=== PATIENT | female | born 1950 | race Caucasian/White ===

== ENCOUNTER 2017-09-13 13:10 | Emergency (ER) | payer SELFPAY ==
[~2017-09-13] VITALS: Ht 154.9 cm; Wt 90.7 kg
[2017-09-13 14:20] VITALS: BP 134/87
--- NOTE | 2017-09-14 11:47 | Emergency Room Report ---
History of Present Illness General Chief Complaint: Skin Rash/Abscess Source: Family Member - daughter, Medical Record Present Illness HPI 67 yo female patient BIB sister presents to ED with complaints of lower left leg cellulitis. Patient was previously seen for cellulitis 2 days ago and is currently being treated with Keflex, patient has completed 2 days of medication use. Patient currently staying in long term and was sent by facility to check leg for worsening of cellulitis. Sister reports history of bilateral leg edema. Patient denies leg pain. Patient denies fever, rash, nausea, vomiting, chest pain, SOB, calf pain. Allergies: Coded Allergies: No Known Allergies (Unverified , 09/13/17) Patient History Past Medical History: see triage record Immunizations: UTD Reviewed Nursing Documentation: PMH: Agreed, PSxH: Agreed Nursing Documentation-PMH Past Medical History: No History, Except For Hx Cardiac Problems: No Hx Hypertension: Yes Hx Pacemaker: No Hx Asthma: No Hx COPD: Yes Hx Diabetes: No Hx Cancer: No Hx Gastrointestinal Problems: No Hx Dialysis: No History Of Psychiatric Problem: Yes Hx Neurological Problems: No Hx Cerebrovascular Accident: No Hx Seizures: No Review of Systems All Other Systems: negative except mentioned in HPI Physical Exam Vital Signs Date Time Temp Pulse Resp B/P (MAP) Pulse Ox O2 Delivery O2 Flow Rate FiO2 09/13/17 13:17 99.0 95 16 102/78 96 Room Air Sp02 EP Interpretation: reviewed, normal General Appearance: no apparent distress, alert, GCS 15, non-toxic Head: normocephalic, atraumatic Eyes: bilateral eye normal inspection, bilateral eye PERRL, bilateral eye EOMI Respiratory: chest non-tender, lungs clear, normal breath sounds, speaking full sentences Cardiovascular #1: regular rate, rhythm Musculoskeletal: back normal, gait/station normal, normal range of motion, non- tender, no calf tenderness, Imani's Sign negative Neurologic: alert, oriented x3, responsive, motor strength/tone normal, sensory intact, speech normal Psychiatric: mood/affect normal Skin: other - anterior distal tibia left lecm area of erythema with mild edema, around edges crusting, minimal dried blood and pus from center of wound, no active bleeding, no ecchymosis Lymphatic: no adenopathy Medical Decision Making PA Attestation Dr. Dia is my supervising physician with whom patient management has been discussed with. Diagnostic Impression: Primary Impression: Cellulitis and abscess of left lower extremity ER Course Pt. presents to the ED c/o cellulitis.. Ddx considered but are not limited to rash, cellulitis, abscess, atopic dermatitis, angioedema., allergic reaction, DVT. Vital signs: are WNL, pt. is afebrile H&PE are most consistent with cellulitis. ORDERS: None required at this time, the diagnosis is clinical ED INTERVENTIONS: None required at this time. DISCHARGE: At this time pt. is stable for d/c to home. Will provide printed patient care instructions, and any necessary prescriptions. Patient instructed to complete current course of antibiotics. Care plan and follow up instructions have been discussed with the patient prior to discharge. Patient instructed to follow-up with primary care provider in 3 - 5 days and discuss further referral to verification rep and vascular physician. Patient questions asked and answered. ER precautions given. Patient instructed to return to ER immediately for any new or worsening of symptoms including but not limited to increasing SOB, persistent fever, intractable vomiting, calf pain. Last Vital Signs Date Time Temp Pulse Resp B/P (MAP) Pulse Ox O2 Delivery O2 Flow Rate FiO2 09/13/17 14:20 82 18 134/87 97 Room Air 09/13/17 14:20 98.0 Disposition: HOME, SELF-CARE Condition: Stable Referrals: NOT CHOSEN IPA/MD,REFERRING (PCP) Patient Instructions: Cellulitis, [id number] Additional Instructions: Followup with primary care provider in 3 -5 days. Take medications as directed. Patient questions asked and answered. ER precautions given, patient instructed to return to ER immediately for any new or worsening of symptoms including but not limited to spread of infection, fever, inability to tolerate meds orally. Bhaskar Anne Sep 14, 2017 11:47
== END 2017-09-13 14:30 | disposition home or self-care (01) ==
LOC: EMR 14:20
DX: L03.116 Cellulitis of left lower limb (principal); I10 Essential (primary) hypertension; J44.9 Chronic obstructive pulmonary disease, unspecified
CPT/HCPCS: 99283